=== PATIENT | male | born 1975 | race Caucasian/White ===

== ENCOUNTER 2022-03-24 22:41 | Emergency (ER) | payer SELFPAY ==
[2022-03-24 23:12] VITALS: BP 147/86
--- NOTE | 2022-03-25 00:06 | XRay Report ---
LEFT RIBS 7 VIEWS INDICATION / CLINICAL INFORMATION: left rib pain. COMPARISON: None available. FINDINGS: RIBS: No acute, displaced fracture or other acute abnormality. LUNGS: No acute findings. No pneumothorax. ADDITIONAL FINDINGS: None. IMPRESSION: 1. No acute findings. Signer Name: Gil Vzaquez MD Signed: 03/25/2022 12:02 AM Workstation Name: [id number]
[2022-03-25] MEDS ORDERED: predniSONE 20 MG TAB PO ONE (00:25)
[2022-03-25] MEDS ORDERED: KETOROLAC 30 MG/1 ML INJ IM ONE (00:25)
[2022-03-25] MEDS ORDERED: LORazepam 1 MG TAB PO ONE (00:49)
[2022-03-25 01:33] LABS: Basophils # (Auto) 0.1 K/mm3 (0.0-0.1); Basophils % (Auto) 0.4 % (0.0-1.8); Eosinophils % (Auto) 0.1 % (0.0-4.3); Hematocrit 42.5 % (35.5-45.6); Hemoglobin 14.6 gm/dl (11.8-15.2); Lymphocytes # (Auto) 1.4 K/mm3 (1.2-5.4); Lymphocytes % (Auto) 8.4 % (13.4-35.0); Mean Corpuscular HGB Conc 34 % (32-34); Mean Corpuscular Volume 93 fl (84-94); Monocytes # (Auto) 1.5 K/mm3 (0.0-0.8); Platelet Count 215 K/mm3 (140-440); Red Blood Count 4.56 M/mm3 (3.65-5.03); Red Cell Distribution Width 12.6 % (13.2-15.2)
[2022-03-25 02:15] LABS: Alanine Aminotransferase 23 units/L (7-56); Albumin 4.7 g/dL (3.9-5); BUN/Creatinine Ratio 18; Blood Urea Nitrogen 16 mg/dL (9-20); Calcium 10.2 mg/dL (8.4-10.2); Hemolysis Index 5
--- NOTE | 2022-03-25 03:02 | Emergency Department Report ---
ED General Adult HPI - General Chief complaint: Chest Pain Stated complaint: DRUG USE/BODY PAIN Source: patient Mode of arrival: Ambulatory Limitations: No Limitations - History of Present Illness Initial comments: Patient is a 46-year-old male with a history of anxiety and depression and polysubstance abuse who presents to the ED with complaint of left lateral rib pain after he fell at home and landed on his left side after heavy cocaine and cannabis abuse about 12 hours ago. Patient states that the pain is worse with any inhalation or movement or palpation of the area. Patient states that he would not like to be referred to a rehab facility but hopes to go for AA classes to help him in his polysubstance abuse problem, since he failed in his previous rehab facility experience a few months ago. Patient denies dizziness, syncope, chest pain or shortness of breath, suicidal or homicidal ideation, back pain, head or neck injuries, hallucinations, nausea and vomiting or abdominal pain. MD Complaint: LEFT RIB PAIN, SMOKING COCAINE AND MARIJUANA -: Sudden, hour(s) (12) Location: chest (Left lateral ribs) Radiation: non-radiation Severity scale (0 -10): 8 Quality: aching, sharp Consistency: constant Improves with: none Worsens with: movement, other (Palpation) Associated Symptoms: denies other symptoms, chest pain (Left lateral rib pain), other (Jitteriness). denies: confusion, cough, diaphoresis, fever/chills, headaches, loss of appetite, malaise, nausea/vomiting, rash, seizure, shortness of breath, syncope, weakness Treatments Prior to Arrival: none - Related Data Allergies Allergy/AdvReac Type Severity Reaction Status Date / Time No Known Allergies Allergy Unverified 03/24/22 23:12 ED Review of Systems ROS: Stated complaint: DRUG USE/BODY PAIN Other details as noted in HPI Constitutional: malaise, other (Jitteriness, anxious). denies: chills, fever Eyes: denies: eye pain, eye discharge, vision change ENT: denies: ear pain, throat pain Respiratory: denies: cough, shortness of breath, wheezing Cardiovascular: chest pain (Left lateral rib pain). denies: palpitations Endocrine: no symptoms reported Gastrointestinal: denies: abdominal pain, nausea, vomiting, diarrhea Genitourinary: denies: urgency, dysuria Musculoskeletal: denies: back pain, joint swelling, arthralgia Skin: denies: rash, lesions Neurological: denies: headache, weakness, paresthesias Psychiatric: anxiety. denies: depression, auditory hallucinations, visual hallucinations, homicidal thoughts, suicidal thoughts Hematological/Lymphatic: denies: easy bleeding, easy bruising ED Past Medical Hx - Past Medical History Previous Medical History?: No Hx Psychiatric Treatment: Yes (Anxiety, depression, polysubstance abuse) - Surgical History Past Surgical History?: No - Social History Smoking Status: Current Every Day Smoker Substance Use Type: Cocaine, Marijuana ED Physical Exam - General Limitations: No Limitations General appearance: alert, in no apparent distress - Head Head exam: Present: atraumatic, normocephalic, normal inspection - Eye Eye exam: Present: normal appearance, PERRL, EOMI Pupils: Present: normal accommodation - ENT ENT exam: Present: normal exam, normal orophraynx, mucous membranes moist, TM's normal bilaterally, normal external ear exam - Neck Neck exam: Present: normal inspection, full ROM. Absent: tenderness - Respiratory Respiratory exam: Present: normal lung sounds bilaterally, chest wall tenderness (Palpable left lateral rib tenderness). Absent: respiratory distress, wheezes, rales, rhonchi, stridor, accessory muscle use, decreased breath sounds - Cardiovascular Cardiovascular Exam: Present: normal rhythm, tachycardia, normal heart sounds. Absent: systolic murmur, diastolic murmur, rubs, gallop - GI/Abdominal GI/Abdominal exam: Present: soft, normal bowel sounds. Absent: tenderness, guarding, rebound, hyperactive bowel sounds, hypoactive bowel sounds, organomegaly, bruit - Extremities Exam Extremities exam: Present: normal inspection, full ROM, normal capillary refill. Absent: tenderness - Back Exam Back exam: Present: normal inspection, full ROM. Absent: tenderness, CVA tenderness (R), CVA tenderness (L), muscle spasm, paraspinal tenderness, vertebral tenderness - Neurological Exam Neurological exam: Present: alert, oriented X3, CN II-XII intact, normal gait, reflexes normal - Psychiatric Psychiatric exam: Present: normal mood, anxious, manic. Absent: agitated, homicidal ideation, suicidal ideation - Skin Skin exam: Present: warm, dry, intact, normal color. Absent: rash ED Course Vital Signs 03/24/22 22:58 Temperature 98 F Pulse Rate 102 H Respiratory 18 Rate Blood Pressure 147/86 O2 Sat by Pulse 100 Oximetry ED Medical Decision Making - Lab Data Result diagrams: 03/25/22 00:56 03/25/22 00:56 - Radiology Data Radiology results: report reviewed, image reviewed [facility] [address] [place] [address] XRay Report Signed Patient: WILTON MONK R#: [id number] : 1975 Acct:[id number] Age/Sex: 46 / M ADM Date: 03/24/22 Loc: ED Attending Dr: Ordering Physician: ED MD MARC Date of Service: 03/24/22 Procedure(s): XR ribs UNI w PA chest 3+V LT Accession Number(s): [id number] cc: ED MD MARC Fluoro Time In Minutes: LEFT RIBS 7 VIEWS INDICATION / CLINICAL INFORMATION: left rib pain. COMPARISON: None available. FINDINGS: RIBS: No acute, displaced fracture or other acute abnormality. LUNGS: No acute findings. No pneumothorax. ADDITIONAL FINDINGS: None. IMPRESSION: 1. No acute findings. Signer Name: Gil Vazquez MD Signed: 03/25/2022 12:02 AM Workstation Name: [id number] Transcribed By: TL Dictated By: Gil Vazquez MD Electronically Authenticated By: Gil Vazquez MD Signed Date/Time: 03/25/22 0002 DD/ 0001 TD/TT: - Medical Decision Making This is a 46-year-old male with a history of anxiety and depression and polysubstance abuse who presents to the ED with complaint of left lateral rib pain after he fell at home and landed on his left side after heavy cocaine and cannabis abuse about 12 hours ago. Patient states that the pain is worse with any inhalation or movement or palpation of the area. Patient states that he would not like to be referred to a rehab facility but hopes to go for AA classes to help him in his polysubstance abuse problem, since he failed in his previous rehab facility experience a few months ago. In the ED, patient is alert and oriented x3 and is not in any distress. Patient is however anxious, jittery during the physical exam and is tachycardic in triage. Lab test results were reviewed and are all nonactionable except for acute leukocytosis of 16,800. The rest of the lab test results are nonactionable. Chest x-ray showed no acute cardiopulmonary abnormalities or pneumonitis, pleural effusion, pneumothorax or rib fractures. Patient was treated for pain in the ED and also given and anxiety medications. On reevaluation, patient felt better and was discharged home and advised to take ibuprofen at home as needed for pain and to follow-up with his primary care physician in 7 to 10 days for reevaluation. Patient was advised return to the ED immediately if symptoms get worse. - Differential Diagnosis Anxiety; rib fracture; chest contusion; polysubstance abuse; Critical care attestation.: If time is entered above; I have spent that time in minutes in the direct care of this critically ill patient, excluding procedure time. ED Disposition Clinical Impression: Anxiety as acute reaction to exceptional stress, Polysubstance abuse Contusion of rib on left side Qualifiers: Encounter type: initial encounter Qualified Code(s): S20.212A - Contusion of left front wall of thorax, initial encounter Disposition: HOME / SELF CARE / HOMELESS Is pt being admited?: No Does the pt Need Aspirin: No Condition: Stable Instructions: Substance Use Disorder and Mental Illness, Contusion, [id number], Generalized Anxiety Disorder, Adult, Rib Contusion Additional Instructions: All lab test results were reviewed and are all nonactionable. Chest x-ray show ed no acute fractures or subluxations of the left ribs, pleural effusion, pneumothorax or any cardiopulmonary abnormalities or pneumonitis. Therefore take regular aeag-gyg-zxefato ibuprofen or Tylenol as needed for pain. Follow- up with your primary care physician in 7 to 10 days for reevaluation. Consider going for rehabilitation of your polysubstance abuse condition. Referrals: [facility] [Provider Group] - 3-5 Days Time of Disposition: 03:05 Print Language: URDU
--- NOTE | 2022-03-25 14:05 | Electrocardiograph Report ---
[facility] Test Date: 2022-03-24 Test Time: 23:12:36 Pat Name: WILTON MONK Department: Room: Gender: M [employer]: LADONNA : 1975 Requested By: JULIETTE JACKSON Order Number: [id number] Reading MD: Keisha Mc Measurements Intervals [place] Rate: 80 P: 30 MD: 150 QRS: -19 QRSD: 102 T: 35 QT: 394 QTc: 450 Interpretive Statements Sinus rhythm Atrial premature complex ST elev, probable normal early repol pattern No previous ECG available for comparison Electronically Signed On 03-25-2022 14:05:01 EDT by Keisha Mc
== END 2022-03-25 03:50 | disposition home or self-care (01) ==
LOC: ED 22:41
DX: S20.212A Contusion of left front wall of thorax, initial encounter (principal); F41.1 Generalized anxiety disorder; F43.0 Acute stress reaction; F32.9 Major depressive disorder, single episode, unspecified; F19.10 Other psychoactive substance abuse, uncomplicated; F17.290 Nicotine dependence, other tobacco product, uncomplicated; X58.XXXA Exposure to other specified factors, initial encounter; Y93.89 Activity, other specified; Y92.89 Other specified places as the place of occurrence of the external cause; Y99.8 Other external cause status
CPT/HCPCS: 36415; 71101; 80053; 84484; 85025; 93005; 96372; 99284; J1885